=== PATIENT | female | born 1995 | race Caucasian/White ===

== ENCOUNTER 2016-09-19 06:00 | Inpatient (IN) ==
[2016-09-19] MEDS ORDERED: Naloxone 0.4 MG/ML INJ IVP PRN (06:14)
[2016-09-19] MEDS ORDERED: Metoclopramide 10 MG/2 ML VIAL IVP PRN (06:14)
[2016-09-19] MEDS ORDERED: Famotidine 20 MG/2 ML VIAL IVP PRN (06:14)
[2016-09-19] MEDS ORDERED: Ondansetron 4 MG/2 ML VIAL IVP PRN (06:14)
[2016-09-19] MEDS ORDERED: Oxytocin 20 units/ LR 1000 mL 20 UNIT/1,000 ML BAG IVC SCH ×2 (06:15→18:16)
[2016-09-19 06:57] LABS: Basophils % 0.3 %; Eosinophils # 0.1 K/mcL (0.0-0.6); Eosinophils % 0.8 %; Hematocrit 35.2 % (35.3-44.9); Hemoglobin 11.7 g/dL (11.5-15.4); Immature Granulocytes % 0.8 % (0-4); Lymphocytes # 2.5 K/mcL (0.6-4.6); Lymphocytes % 20.9 %; Mean Corpuscular HGB Conc 33.2 g/dL (31.6-35.5); Mean Corpuscular Hemoglobin 31.2 pg (28.0-33.3); Mean Corpuscular Volume 93.9 fL (83.0-100.0); Mean Platelet Volume 11.7 fL (9.4-12.4); Monocytes # 0.8 K/mcL (0.0-1.3); Monocytes % 7.1 %; Neutrophils # 8.3 K/mcL (1.6-8.9); Platelet Count 223 K/mcL (140-400); Red Blood Count 3.75 M/mcL (3.82-4.97); Red Cell Distribution Width 13.2 % (11.5-14.5); Segmented Neutrophils % 70.1 %
--- NOTE | 2016-09-19 07:05 | OB/GYN History & Physical ---
Date of Encounter: 09/19/16 Time of Encounter: 06:54 Assessment and Plan (1) 39 weeks gestation of Current visit: Yes Status: Acute . (2) Elective induction of labor planned Current visit: Yes Status: Acute Patient is here for induction of labor. Patient was 3cm and 80% at last appointment on 09/16/16. Plan for induction with pitocin. Nuabin and Epidural as desired GBS negative Expect a vaginal delivery. History of Present Illness Chief complaint: 39 Weeks here for Induction HPI: Ms. Gallardo is a 21 year old female at 39 weeks and 5 days presenting to Labor and Delivery for induction. Patient's due date was 09/21/16. She is having a baby boy that she is taking home with her. Uncomplicated course, She has had no falls, has not received steroids, she plans on breast feeding, and does not plan to have an epidural. patient's blood type is O+. Patient has no current complaints she denies Cramping, contractions, abdominal pain, Nausea, Vomiting diarrhea, constipation, blurry vision, headache, burning with urination , chest pain, SOB. She reports good movements. Patient was 3cm and 80% at last visit on 09/16/16. Labs: O+, GBS negative,rubella negative. All other serologies negative. Past Med Surg Social Fam HX - Past Medical History Medical history: no medical history Psychiatric history: no psych history - Social History Smoking Status: Never smoker Smokeless Tobacco Status: No Alcohol use: none Drug use: none - Family History Mother History Unknown: Yes Obstetrical History - Pregnancies : 1 Para: 0 Term: 0 : 0 Ab's: 0 Livin Medications and Allergies Famotidine [Pepcid] 1 tab PO PRN PRN 09/19/16 [History] Vit #108/Iron/FA [ One Tablet] 1 tab PO DAILY 09/19/16 [History ] Allergies No Known Allergies Allergy (Verified 09/19/16 06:29) Review of System OB All systems PM: reviewed and no additional remarkable complaints except as stated Exam - Constitutional Constitutional: well developed, well nourished, no acute distress - HEENT HEENT: EOMI, PERRL, Mucus Membranes Moist - Neck Neck exam: full ROM, normal inspection, supple - Lungs Respiratory exam: CTAB - Cardiovascular Cardiovascular exam: RRR - Abdomen Abdomen: Present: bowel sounds normal, gravid, non tender - Extremities Extremities exam: full ROM, normal inspection, radial pulses palpable and symetrical Results Result Diagrams: 09/19/16 06:45 All other labs normal. - VTE Reasons for not Prescribing Prophylaxis: Treatment not Indicated - Low risk for VTE
[2016-09-19] MEDS: Ringers Solution, Lactated 1,000 ML IVC SCH ×2 (07:22→11:29)
--- NOTE | 2016-09-19 09:20 | Anesthesia Evaluation PreOp ---
Date of Encounter: 09/19/16 Time of Encounter: 09:12 - Past History Planned Operation: vaginal del, , G1 induction Cardiac History: Denies any Significant Hx Pulmonary History: Denies Any Significant HX METERS SUPERINTENDENT History: Denies Any Significant HX Other Medical History: Other (chronic generalized lower back pain...no radiculopathy) Anesthesia History: No Prior Anesthetic Complications (no family Hx.) Alcohol Use: none Drug use: none Medications and Allergies Famotidine [Pepcid] 1 tab PO PRN PRN 09/19/16 [History] Vit #108/Iron/FA [ One Tablet] 1 tab PO DAILY 09/19/16 [History ] Allergies No Known Allergies Allergy (Verified 09/19/16 06:29) Anesthesia Results - Labs 09/19/16 06:45 Anesthesia Exam - HEENT Pupil (Motor): Pupils equal Mallampati: II Teeth: Normal Oral Opening: Greater than 3 - METERS SUPERINTENDENT LOC: Oriented METERS SUPERINTENDENT Motor: Normal RUE, Normal LUE, Normal RLE, Normal LLE, Normal Face METERS SUPERINTENDENT Sensory: Normal: RUE, LUE, RLE, LLE, Face - Cardiac Rhythm: Regular Murmur: None - Pulmonary Breath Sounds: bilateral Clear Respiratory Effort: Symmetrical Anesthesia Assess/Plan ASA Score: 2 Modified Giovana Scale for Level of Consciousness: Cooperative, oriented, and tranquil Anesthetic Plan: General, Regional (at this time patient does not want regional anesthesia, questions answered.) Monitoring Plan: Standard Monitors Recovery Plan: PACU
[2016-09-19] MEDS ORDERED: *HR* Nalbuphine 20 MG/ML AMPUL IVP PRN (14:00)
[2016-09-19] MEDS ORDERED: *HR* Nalbuphine 20 MG/ML AMPUL ONE (14:02)
[2016-09-19] MEDS ORDERED: Epidural Premix (fent/bupiv) 110 ML EP ONE (14:14)
--- NOTE | 2016-09-19 14:54 | OB Labor Progress Note ---
Date of Encounter: 09/19/16 Time of Encounter: 14:51 Labor Progress Note - Subjective Subjective: Pt breathing well through contractions, has had one dose nubain - Vital Signs Vital Signs: 127/69 - Heart Tones Heart Tones: 125/minimal/no accels Cat 2, recent dose of nubain - [place]: q2 - Plan Plan: Continue current management plan Pitocin per policy Anticipate
[2016-09-19] MEDS ORDERED: Lidocaine 1% 20 ML MDV ONE ×2 (15:26→16:21)
--- NOTE | 2016-09-19 17:18 | OB/GYN Procedure Note ---
Delivery - Delivery Date: 09/19/16 Provider: Mahad Saavedra Intrapartum events: none Delivery induction: oxytocin Delivery augmentation: rupture of membranes Delivery monitor: external uterine Anesthesia: none Estimated Blood Loss: 200 - Infant (s) A Infant Delivery Date: 09/19/16 Infant Delivery Time: 16:09 Presentation: vertex Position: BRIA Gender: Male Viability: Viable Weight Gram: 3.51 kg at 1 minute: 8 at 5 mins: 9 Shoulder Dystocia: not encountered Specimens collected: cord blood Placenta: spontaneous Cord: 3 umbilical vessels - Repair Episiotomy: none Laceration Description: Periurethral - Complications Delivery complications: none - Disposition Mom disposition: stable in LDR [place] disposition: stable in LDR - Comments Comments: 21 y/o now @ 39+3 weeks delivered a viable male infant weight 3510g, 7lbs, 12oz @ 1609hrs. delivered BRIA, no nuchal cord, 3 VC, placenta delivered @ 1617hrs. APGARs 8/9. Bilateral laurie urethral tears repaired with 4-0 vicryl, 2nd degree laceration repaired with 3-0 vicryl. EBL 200, mom and infant doing well.
[2016-09-19] MEDS ORDERED: Acetaminophen 325 MG TABLET PO PRN (18:16)
[2016-09-19] MEDS ORDERED: Lanolin 28 GM TUBE TP PRN (18:16)
[2016-09-19] MEDS ORDERED: Measles/Mumps/Rubella Vacc 0.5 ML VIAL SQ PRN (18:16)
[2016-09-19] MEDS ORDERED: Benzocaine/Menthol 56 GM AEROSOL SPRAY TP PRN (18:16)
[2016-09-19] MEDS ORDERED: FAMOTIDINE PO PRN (18:16)
[2016-09-19] MEDS ORDERED: Oxytocin 20 units/ LR 1000 mL 20 UNIT/1,000 ML BAG IVC ONE (18:18)
[2016-09-19] MEDS: Ibuprofen 600 MG TABLET PO PRN (19:40)
[2016-09-20 05:48] LABS: Basophils % 0.2 %; Eosinophils % 0.1 %; Hematocrit 30.6 % (35.3-44.9); Hemoglobin 10.3 g/dL (11.5-15.4); Immature Granulocytes % 0.6 % (0-4); Lymphocytes # 1.8 K/mcL (0.6-4.6); Lymphocytes % 11.8 %; Mean Corpuscular HGB Conc 33.7 g/dL (31.6-35.5); Mean Corpuscular Hemoglobin 31.9 pg (28.0-33.3); Mean Corpuscular Volume 94.7 fL (83.0-100.0); Mean Platelet Volume 11.8 fL (9.4-12.4); Monocytes # 1.1 K/mcL (0.0-1.3); Neutrophils # 12.5 K/mcL (1.6-8.9); Platelet Count 181 K/mcL (140-400); Red Blood Count 3.23 M/mcL (3.82-4.97); Red Cell Distribution Width 13.2 % (11.5-14.5); Segmented Neutrophils % 80.3 %
--- NOTE | 2016-09-20 08:13 | Discharge Summary ---
Date of Encounter: 09/20/16 Time of Encounter: 08:10 - Discharge Diagnosis (1) Vaginal delivery Priority: Primary Status: Acute Comments: Pt meeting milestones. Will d/c shearer this am and await spontaneous void. (2) Mother currently breast-feeding Priority: Secondary Status: Acute - Discharge Medications Prescriptions: Ibuprofen [Motrin] 600 mg PO Q6HR PRN #60 tab PRN Reason: Cramping Docusate [Colace] 100 mg PO BID #60 Home Medications: Vit #108/Iron/FA [ One Tablet] 1 tab PO DAILY 09/19/16 [History ] Benzocaine/Menthol [place] [Dermoplast [place]] 1 appl TP QID PRN aerosol 09/20/16 [Rx] Docusate [Colace] 100 mg PO BID #60 09/20/16 [Rx] Ibuprofen [Motrin] 600 mg PO Q6HR PRN #60 tab 09/20/16 [Rx] Lanolin 1 appl TP QID PRN 09/20/16 [Rx] Allergies/Adverse Reactions: Allergies No Known Allergies Allergy (Verified 09/19/16 06:29) Data Procedures and tests throughout hospitalization: Laboratory Tests 09/19/16 09/20/16 06:45 03:53 WBC 11.8 H 15.6 H RBC 3.75 L 3.23 L Hgb 11.7 10.3 L Hct 35.2 L 30.6 L MCV 93.9 94.7 MCH 31.2 31.9 MCHC 33.2 33.7 RDW 13.2 13.2 Plt Count 223 181 MPV 11.7 11.8 Immature Gran % 0.8 0.6 Seg Neutrophils % 70.1 80.3 Lymphocytes % 20.9 11.8 Monocytes % 7.1 7.0 Eosinophils % 0.8 0.1 Basophils % 0.3 0.2 Neutrophils # 8.3 12.5 H Lymphocytes # 2.5 1.8 Monocytes # 0.8 1.1 Eosinophils # 0.1 0.0 Basophils # 0.0 0.0 Labs on day of discharge: Labs from last 24 hours 09/20/16 03:53 WBC 15.6 H RBC 3.23 L Hgb 10.3 L Hct 30.6 L MCV 94.7 MCH 31.9 MCHC 33.7 RDW 13.2 Plt Count 181 MPV 11.8 Immature Gran % 0.6 Seg Neutrophils % 80.3 Lymphocytes % 11.8 Monocytes % 7.0 Eosinophils % 0.1 Basophils % 0.2 Neutrophils # 12.5 H Lymphocytes # 1.8 Monocytes # 1.1 Eosinophils # 0.0 Basophils # 0.0 Date of admission: 09/19/16 06:13 Primary care physician: PCP ERNESTO Consults: 09/19/16 18:16 Consult to Radio Announcer [CONS] Routine Comment: Vaginal delivery, consult needed Discharging clinician: Nidia Colon Anticipated date of discharge: 09/20/16 - Patient Status Disposition: Home, Self-Care Condition: Good Functional capacity at discharge: independent ambulation Overall status at discharge: patient is progressing back to baseline - Discharge Instructions Follow Up With: ERNESTO,PCP [Primary Care Provider] - Mahad Saavedra MD [Partnered Physician] - Hospital Course Reason for admission: induction of labor Delivery: Episiotomy: none Laceration: other (periurethral) Other procedures: none complications: none Discharge diagnosis: IUP at term delivered baby: male Hospital course: - Delivery Date: 09/19/16 Provider: Mahad Saavedra Intrapartum events: none Delivery induction: oxytocin Delivery augmentation: rupture of membranes Delivery monitor: external uterine Anesthesia: none Estimated Blood Loss: 200 - (s) Infant A Delivery Date: 09/19/16 Infant Delivery Time: 16:09 Presentation: vertex Position: BRIA Gender: Male Viability: Viable Weight Gram: 3.51 kg at 1 minute: 8 at 5 mins: 9 Shoulder Dystocia: not encountered Specimens collected: cord blood Placenta: spontaneous Cord: 3 umbilical vessels - Repair Episiotomy: none Laceration Description: Periurethral - Complications Delivery complications: none - Disposition Mom disposition: home PPD#1 disposition: home with mother, Time Attestation: Total time spent providing and/or coordinating discharge services: Time Spent: Less than 30 minutes Exam - Constitutional Vitals: Temp Pulse Resp BP Pulse Ox 98.3 F 70 16 110/64 98 09/20/16 03:00 09/20/16 04:15 09/20/16 04:15 09/20/16 03:00 09/20/16 03:00 General appearance IM: A&O X 3 - Respiratory Respiratory exam: Present: CTAB - Cardiovascular Cardiovascular exam IM: Present: RRR, +S1, +S2 - GI/Abdominal GI/Abdominal exam IM: soft - Rectal Rectal exam: deferred - Uterine Tone: Firm - Extremities Exam Extremities exam IM: Present: normal inspection - Neurological Exam Neurological exam: normal gait, oriented X3 - Psychiatric Additional comments: reports good mood
[2016-09-20] MEDS ORDERED: Prenatal Vit/FA 1 EACH TABLET PO SCH (09:00)
[2016-09-20 16:14] VITALS: BP 106/68
[2016-09-20] MEDS: Ibuprofen 600 MG TABLET PO PRN (18:28)
== END 2016-09-20 18:30 | disposition home or self-care (01) | DRG 775 ==
LOC: 1NENULAB 06:13 → 1NENUOBS 18:51
PROVIDERS: ADMIT Student in an Organized Health Care Education/Training Program; ATTEND Student in an Organized Health Care Education/Training Program

== ENCOUNTER → 2017-12-30 01:13 | Observation (INO) ==
[2017-12-30 00:12] LABS: Amphetamine Screen,Urine Negative ng/mL (Cutoff=1000); Barbiturate Screen,Urine Negative ng/mL (Cutoff=200); Benzodiazepines Screen,Urine Negative ng/mL (Cutoff=200); Cannabinoid Screen,Urine Negative ng/mL (Cutoff = 50); Cocaine Screen,Urine Negative ng/mL (Cutoff= 300); Opiate Screen,Urine Negative ng/mL (Cutoff=300); Phencyclidine Screen,Urine Negative ng/mL (Cutoff=25)
[2017-12-30 00:24] LABS: Bilirubin,Urine Negative (Negative); Blood,Urine Negative (Negative); Clarity,Urine Cloudy (Clear); Color,Urine Yellow (Yellow); Glucose,Urine (UA) Normal (Normal); Ketones,Urine 15 mg/dL (Negative); Leukocyte Esterase,Urine Small (Negative); Nitrite,Urine Negative (Negative); Protein,Urine 30 mg/dL (Neg-Trace); Specific Gravity,Urine 1.021 (1.010-1.025); Urobilinogen,Urine Normal (Normal)
[2017-12-30 00:27] LABS: Bacteria,Urine Few per hpf (None-Few); Hyaline Casts,Urine None Seen per lpf (None-Few); Squamous Epithelial Cell,Urine Many per lpf (None-Few)
[2017-12-30 00:43] LABS: RBC,Urine 0-3 per hpf (0-3)
--- NOTE | 2017-12-30 01:33 | OB/GYN Progress Note ---
Date of Encounter: 12/29/17 Time of Encounter: 23:45 - Assessment and Plan (1) 29 weeks gestation of Status: Acute Reactive NST appropriate for gestation Likely round ligament pain Dehydrated, encouraged to increase water intake Discharge home with labor precautions Follow up in office with routine care and PRN (2) Abdominal pain affecting Status: Acute Subjective - Subjective Principal diagnosis: Abdominal pain Interval history: 29.3 week presents with abdominal pain that began this morning. Denies contractions, cramping, leaking of fluid, vaginal discharge, vaginal bleeding, headaches, visual changes, and epigastric pain. Antepartum ROS: movement normal Objective - Vital Signs Vital Signs: Intake and Output 12/29/17 12/29/17 12/30/17 15:59 23:59 07:59 Other: Weight 56.654 kg - Exam FHR: auscultation normal, category 1 FHR comments: Reactive NST - Labs Labs: Abnormal lab results Urine Clarity Cloudy (Clear) A 12/29/17 23:40 Urine Protein 30 mg/dL (Neg-Trace) H 12/29/17 23:40 Urine Ketones 15 mg/dL (Negative) H 12/29/17 23:40 Ur Leukocyte Esterase Small (Negative) H 12/29/17 23:40 Urine Microscopic WBC 5-15 per hpf (0-3) H 12/29/17 23:40 Ur Squamous Epith Cells Many per lpf (None-Few) H 12/29/17 23:40 Ur Culture Indicated? NO. (NO) A 12/29/17 23:40
== END | disposition home or self-care (01) ==
LOC: 1NENULAB
PROVIDERS: ADMIT Advanced Practice Midwife; ATTEND Advanced Practice Midwife

== ENCOUNTER → 2018-02-07 13:58 | Observation (INO) ==
--- NOTE | 2018-02-07 11:27 | OB/GYN Progress Note ---
Date of Encounter: 02/07/18 Time of Encounter: 11:21 - Assessment and Plan (1) 35 weeks gestation of Current Visit: Yes Status: Acute at 35w0d gestation of Being followed by MFM at [facility] for talipes Uncomplicated course (2) Nausea & vomiting Current Visit: Yes Status: Acute Several hour history of nausea and vomiting since this morning Denies sick contacts Denies need for zofran at this time, will be given if she desires Tolerating PO fluids. Pt reports nausea has resolved while in triage. Qualifiers: Vomiting type: unspecified Vomiting Intractability: unspecified Qualified Code(s): R11.2 - Nausea with vomiting, unspecified (3) Diarrhea Current Visit: Yes Status: Acute 2 episodes of diarrhea this morning Continue fluid intake PO Qualifiers: Diarrhea type: unspecified type Qualified Code(s): R19.7 - Diarrhea, unspecified (4) NST (non-stress test) reactive Current Visit: Yes Status: Acute FHR 135 Reactive NST (5) Uterine contractions Current Visit: Yes Status: Acute Contractions on toco. SVE 1cm and unchanged on repeat exam. Discharge home with strict return precautions. Pt to follow-up now in office with MFM. Subjective - Subjective Principal diagnosis: Nausea, vomiting, diarrhea Interval history: Patient is a 22 y/o at 35w0d gestation of presenting with complaint of nausea, vomiting, and diarrhea since this morning. course has been uncomplicated besides being followed by MFM for talipes. She was in a normal state of health until waking up this morning when she vomited and had diarrhea twice. She also complains of irregular contractions. She was able to eat a small amount of applesauce for breakfast. She has not vomited for several hours at this point. She admits to good movement. She denies vaginal bleeding, leakage of fluid, fever, chills, headache, sinus pressure, chest pain, shortness of breath, cough, abdominal pain, dysuria, calf pain or pedal edema. Currently she states that the nausea is decreased and she denies need for zofran at this time. She is drinking water to maintain hydration. Antepartum ROS: movement normal, contractions, no loss of fluid Objective - Vital Signs Vital Signs: Intake and Output 02/06/18 02/07/18 02/07/18 23:59 07:59 15:59 Other: Weight 58.5 kg Patient Weight 02/07/18 23:59 Weight 58.5 kg - Exam FHR: auscultation normal, category 1 Auscultation: bilateral: normal Abdomen: Present: normal appearance, soft, gravid. Absent: tenderness Uterus: Present: normal, firm Cervical dilation: 1 cm Cervix effacement: 50 station: -1
[2018-02-07 11:29] LABS: Bilirubin,Urine Negative (Negative); Blood,Urine Negative (Negative); Clarity,Urine Cloudy (Clear); Color,Urine Yellow (Yellow); Glucose,Urine (UA) Normal (Normal); Ketones,Urine 40 mg/dL (Negative); Leukocyte Esterase,Urine Negative (Negative); Nitrite,Urine Positive (Negative); Protein,Urine Trace mg/dL (Neg-Trace); Specific Gravity,Urine 1.011 (1.010-1.025); Urobilinogen,Urine Normal (Normal)
[2018-02-07 11:34] LABS: Bacteria,Urine Many per hpf (None-Few); Hyaline Casts,Urine None Seen per lpf (None-Few); Squamous Epithelial Cell,Urine Many per lpf (None-Few)
[2018-02-07 11:55] LABS: Amphetamine Screen,Urine Negative ng/mL (Cutoff=1000); Barbiturate Screen,Urine Negative ng/mL (Cutoff=200); Benzodiazepines Screen,Urine Negative ng/mL (Cutoff=200); Cannabinoid Screen,Urine Negative ng/mL (Cutoff = 50); Cocaine Screen,Urine Negative ng/mL (Cutoff= 300); Opiate Screen,Urine Negative ng/mL (Cutoff=300); Phencyclidine Screen,Urine Negative ng/mL (Cutoff=25)
== END | disposition home or self-care (01) ==
LOC: 1NENULAB
PROVIDERS: ADMIT Registered Nurse; ATTEND Registered Nurse